=== PATIENT | female | born 1965 | race Caucasian/White ===

== ENCOUNTER 2021-12-10 08:07 | Day surgery (SDC) | payer OTHER ==
[~2021-12-10] VITALS: Ht 152.4 cm; Wt 75.7 kg
[2021-12-10] MEDS ORDERED: MIDAZOLAM 5 MG/5 ML VIAL ONE (10:03)
[2021-12-10] MEDS ORDERED: fentaNYL citrate 0.05 MG/ML VIAL ONE (10:03)
[2021-12-10] MEDS ORDERED: diphenhydrAMINE 50 MG/ML VIAL ONE (10:03)
[2021-12-10] MEDS ORDERED: LIDOCAINE 2% 100 MG/5 ML UJET TP ONE (10:03)
[2021-12-10] MEDS ORDERED: MIDAZOLAM 2 MG/2 ML VIAL IVP ONE (11:55)
[2021-12-10] MEDS ORDERED: fentaNYL citrate 0.05 MG/ML VIAL IVP ONE (11:55)
== END 2021-12-10 10:55 | disposition home or self-care (01) ==
LOC: MOR 08:07 → MMU 08:08 → MOR 10:55
PROVIDERS: ATTEND Internal Medicine Gastroenterology
DX: Z12.11 Encounter for screening for malignant neoplasm of colon (principal); D12.3 Benign neoplasm of transverse colon; Z20.822 Contact with and (suspected) exposure to COVID-19
CPT/HCPCS: 45385; 87426; 88305; J2250; J3010; J1200